=== PATIENT | male | born 1955 | race Caucasian/White ===

== ENCOUNTER → 2017-04-30 | Outpatient (CLI) | payer OTHER ==
[~2017-04-30] MED LIST: MULT-513 PO
[2017-04-30 13:00] LABS: BASO % 0.8 %; BASO ABS # 0.04 K/uL (0-0.2); COMPLETE YES; EOS % 5.7 %; HEMATOCRIT 45.5 % (42-52); IG% 0.2 %; LYMPH ABS # 1.32 K/uL (1.2-3.4); MEAN CELL VOLUME 93.2 fL (80-100); MEAN CORPUSCULAR HEMOGLOBIN 31.1 pg (25-34); MEAN CORPUSCULAR HGB CONC 33.4 g/dl (32-36); MEAN PLATELET VOLUME 10.5 fL (7.4-10.4); MONO % 9.2 %; NEUT % 57.1 %; PLATELET COUNT 170 K/uL (130-400); RED BLOOD COUNT 4.88 M/uL (4.7-6.1); WHITE BLOOD COUNT 4.88 K/uL (4.8-10.8)
[2017-04-30 13:07] LABS: ALT/SGPT 26 U/L (12-78); AST/SGOT 17 U/L (15-37); BLOOD UREA NITROGEN 20 mg/dl (7-18); BUN/CREATININE RATIO 20.2 (10-20); CALCIUM 8.7 mg/dl (8.5-10.1); CARBON DIOXIDE 25 mmol/L (21-32); CHLORIDE 107 mmol/L (98-107); CHOLESTEROL 180 mg/dl (0-200); CREATININE 0.99 mg/dl (0.60-1.40); GLUCOSE 91 mg/dl (70-99); POTASSIUM 4.1 mmol/L (3.5-5.1); SODIUM 139 mmol/L (136-145)
[2017-04-30 13:17] LABS: ALB/GLOB RATIO 1.2 (0.9-2); ALKALINE PHOSPHATASE 54 U/L (45-117); CHOLESTEROL/HDL RATIO 4.5; HDL CHOLESTEROL 40 mg/dl; TRIGLYCERIDES 124 mg/dl (0-150); VERY LOW DENSITY LIPOPROT CALC 25 mg/dl
== END | disposition home or self-care (01) ==
LOC: C.LABSPEC 12:25
PROVIDERS: ATTEND Internal Medicine
DX: R53.83 Other fatigue (principal); E78.5 Hyperlipidemia, unspecified; R30.0 Dysuria; Z11.59 Encounter for screening for other viral diseases

== ENCOUNTER 2017-05-06 05:20 | Emergency (ER) | payer OTHER ==
[~2017-05-06] VITALS: Ht 177.8 cm; Wt 95.8 kg
[2017-05-06 05:25] VITALS: Ht 177.8 cm; Wt 95.8 kg
[2017-05-06] MEDS ORDERED: MoRPHine SULFATE 4 MG/ML 1 ML CARP\\VIAL IV STA ×2 (05:44→06:08)
[2017-05-06] MEDS ORDERED: SODIUM CHLORIDE 0.9% 1000ML 1,000 ML IV STA ×2 (05:44→07:11)
[2017-05-06 06:03] LABS: BASO % 0.7 %; BASO ABS # 0.04 K/uL (0-0.2); COMPLETE YES; EOS % 6.9 %; IG% 0.2 %; LYMPH % 24.8 %; LYMPH ABS # 1.48 K/uL (1.2-3.4); MEAN CELL VOLUME 91.3 fL (80-100); MEAN CORPUSCULAR HEMOGLOBIN 32.7 pg (25-34); MEAN CORPUSCULAR HGB CONC 35.9 g/dl (32-36); MEAN PLATELET VOLUME 10.2 fL (7.4-10.4); MONO % 8.7 %; NEUT % 58.7 %; PLATELET COUNT 166 K/uL (130-400); RED BLOOD COUNT 5.04 M/uL (4.7-6.1); WHITE BLOOD COUNT 5.96 K/uL (4.8-10.8)
[2017-05-06 06:12] LABS: PROTHROMBIN TIME (PATIENT) 10.4 SECONDS (9.0-12.0)
[2017-05-06] MEDS ORDERED: HYDROmorphone INJ 1 MG/ML SYR IV STA (06:29)
[2017-05-06 06:32] LABS: BUN/CREATININE RATIO 20.4 (10-20); CALCIUM 9.3 mg/dl (8.5-10.1); CREATININE 1.27 mg/dl (0.60-1.40); POTASSIUM 4.1 mmol/L (3.5-5.1)
[2017-05-06] MEDS ORDERED: KETOROLAC TROMETHAMINE 30 MG/ML VIAL IV STA (06:33)
[2017-05-06 06:34] LABS: ALB/GLOB RATIO 1.2 (0.9-2)
--- NOTE | 2017-05-06 06:39 | EMERGENCY ROOM VISIT NOTE ---
History Report prepared by Troy: Lloyd Blanco Under the Supervision of: Arnulfo FariaO. First contact with patient: 05:34 Chief Complaint: ABDOMINAL PAIN Stated Complaint: LWR RT ABD PAIN INTO BACK - COMES AND GOES History of Present Illness The patient is a 62 year old male who presents to the Emergency Room with complaints of on and off abdominal pain for the past week, and it worsened this morning around 0130. The patient states that the pain is in his lower right abdomen, and it is going into his lower back. He states that he has never had anything like this in the past, though he states that last week he was lifting things, though nothing since then. The patient states that he has never had anything like this before, and he has never had any abdominal surgeries. He states that he currently has a hernia in the left lower abdomen, and this has not changed recently. The patient states that he does not have a family history of gall bladder or appendix issues, and he is unsure about kidney stones. Pt denies headache, change in vision, fevers, chest pain, shortness of breath, nausea, vomiting, diarrhea, pain with urination, and melena. Pt states vomited twice prior to arrival. Source of History: patient Onset: a week ago Position: abdomen (lower right) Timing: other (on and off) Associated Symptoms: + back pain Review of Systems See HPI for pertinent positives & negatives. A total of 10 systems reviewed and were otherwise negative. Past Medical & Surgical Medical Problems: (1) Hernia Social History Smoking Status: Never Smoker Marital Status: Housing Status: lives with family Occupation Status: employed Current/Historical Medications Scheduled Ondasetron Odt (Zofran Odt), 4 MG SL Q6H Tamsulosin Hcl (Flomax), 0.4 MG PO DAILY Scheduled PRN Oxycodone/Acetaminophen 5MG/325MG (Percocet 5MG/325MG), 1-2 TABLETS PO Q4H PRN for Pain Allergies Coded Allergies: No Known Allergies (Unverified , 05/06/17) Physical Exam Vital Signs Date Time Temp Pulse Resp B/P (MAP) Pulse Ox O2 Delivery O2 Flow Rate FiO2 05/06/17 08:09 36.3 72 20 112/74 94 05/06/17 07:46 72 20 112/74 94 05/06/17 06:40 56 18 100 05/06/17 06:32 145/86 05/06/17 06:25 55 23 100 05/06/17 06:24 161/87 05/06/17 06:05 52 19 100 05/06/17 06:01 151/98 05/06/17 05:50 54 24 98 Room Air 05/06/17 05:41 56 05/06/17 05:38 153/96 05/06/17 05:25 36.3 56 24 175/103 100 Room Air Physical Exam GENERAL: alert, uncomfortable appearing, well nourished, no distress, non-toxic EYE EXAM: normal conjunctiva, PERRL and EOM's grossly intact OROPHARYNX: no exudate, no erythema, lips, buccal mucosa, and tongue normal and mucous membranes are moist NECK: supple, no nuchal rigidity, no adenopathy, non-tender LUNGS: Clear to auscultation. Normal chest wall mechanics HEART: no murmurs, S1 normal and S2 normal ABDOMEN: Tenderness in the right lower abdomen from the midline to the right side. Dull to percussion. No rebound. Some guarding on the right side. Abdomen soft, normo-active bowel sounds BACK: Back is symmetrical on inspection and there is no deformity, no midline tenderness, no CVA tenderness. SKIN: no rashes and no bruising UPPER EXTREMITIES: upper extremities are grossly normal. LOWER EXTREMITIES: No pitting edema. NEURO EXAM: Normal sensorium, cranial nerves II-XII grossly intact, normal speech, no gross weakness of arms, no gross weakness of legs. Gross sensation intact. Medical Decision & Procedures ER Provider Diagnostic Interpretation: Radiology results have been interpreted by the radiologist and reviewed by me. ABD/PELVIS NO IV OR ORAL CONT HISTORY: 62 years-old Male right abd/flank pain severe right-sided flank pain with history of kidney stones COMPARISON: None available TECHNIQUE: Multiple axial CT images of the abdomen and pelvis were obtained without contrast. A dose lowering technique was used consistent with the principals of ALMARA. FINDINGS: Study is mildly limited secondary to patient motion. Mild dependent bibasilar atelectasis. No pneumoperitoneum. The imaged inferior cardiac chambers are mildly enlarged. Trace pericardial effusion. Ill-defined 2.2 x 1.8 cm low attenuating lesion is seen within segment of the liver on image 40 of series 2 with additional ill-defined 2.4 x 1.9 cm lesion seen within the left hepatic lobe. Evaluation of the solid abdominal organs is limited without the use of IV contrast. The spleen, pancreas, gallbladder and adrenal glands are unremarkable. Exophytic cystic lesion of the inferior pole left kidney is seen, 2.5 x 2.5 cm suggesting cyst. Additionally, there are probable renal sinus cysts on the left. There is moderate right-sided hydronephrosis with associated perinephric and periureteral inflammatory stranding secondary to a 4 x 4 x 5 mm calculus of the proximal right ureter which is seen at the level of L3-L4. Urinary bladder and prostate are unremarkable. Small fat filled inguinal hernias. The abdominal aorta is normal in both course and caliber. No bulky adenopathy. No bowel obstruction or focal bowel wall thickening. The large bowel is within normal limits. The appendix appears normal. Soft tissues are unremarkable. Scattered sclerotic foci of the pelvis suggests bone islands. IMPRESSION: 1. 4 x 4 x 5 mm calculus of the proximal right ureter at the level of L3-L4 causes moderate right-sided hydroureteronephrosis. 2. Ill-defined areas of low attenuation involving the right and left hepatic lobes as above measuring up to 2.4 cm are suspicious for indeterminate lesions. These findings could be correlated with contrast-enhanced study. 3. Normal appendix. The above report was generated using voice recognition software. It may contain grammatical, syntax or spelling errors. Electronically signed by: Zaire Montanez M.D. 05/06/2017 7:05 AM Dictated Date/Time: 05/06/2017 6:55 AM Laboratory Results 05/06/17 05:45 Red Blood Count 5.04, Mean Corpuscular Volume 91.3, Mean Corpuscular Hemoglobin 32.7, Mean Corpuscular Hemoglobin Concent 35.9, Mean Platelet Volume 10.2, Neutrophils (%) (Auto) 58.7, Lymphocytes (%) (Auto) 24.8, Monocytes (%) (Auto) 8.7, Eosinophils (%) (Auto) 6.9, Basophils (%) (Auto) 0.7, Neutrophils # (Auto) 3.50, Lymphocytes # (Auto) 1.48, Monocytes # (Auto) 0.52, Eosinophils # (Auto) 0.41, Basophils # (Auto) 0.04 05/06/17 05:45 Test 05/06/17 05:45 05/06/17 05:53 White Blood Count 5.96 K/uL (4.8-10.8) Red Blood Count 5.04 M/uL (4.7-6.1) Hemoglobin 16.5 g/dL (14.0-18.0) Hematocrit 46.0 % (42-52) Mean Corpuscular Volume 91.3 fL (80-100) Mean Corpuscular Hemoglobin 32.7 pg (25-34) Mean Corpuscular Hemoglobin Concent 35.9 g/dl (32-36) Platelet Count 166 K/uL (130-400) Mean Platelet Volume 10.2 fL (7.4-10.4) Neutrophils (%) (Auto) 58.7 % Lymphocytes (%) (Auto) 24.8 % Monocytes (%) (Auto) 8.7 % Eosinophils (%) (Auto) 6.9 % Basophils (%) (Auto) 0.7 % Neutrophils # (Auto) 3.50 K/uL (1.4-6.5) Lymphocytes # (Auto) 1.48 K/uL (1.2-3.4) Monocytes # (Auto) 0.52 K/uL (0.11-0.59) Eosinophils # (Auto) 0.41 K/uL (0-0.5) Basophils # (Auto) 0.04 K/uL (0-0.2) RDW Standard Deviation 43.2 fL (36.4-46.3) RDW Coefficient of Variation 13.0 % (11.5-14.5) Immature Granulocyte % (Auto) 0.2 % Immature Granulocyte # (Auto) 0.01 K/uL (0.00-0.02) Prothrombin Time 10.4 SECONDS (9.0-12.0) Prothromb Time International Ratio 1.0 (0.9-1.1) Urine Color YELLOW Urine Appearance CLEAR (CLEAR) Urine pH 5.0 (4.5-7.5) Urine Specific [place] 1.021 (1.000-1.030) Urine Protein NEG (NEG) Urine Glucose (UA) NEG (NEG) Urine Ketones NEG (NEG) Urine Occult Blood TRACE (NEG) Urine Nitrite NEG (NEG) Urine Bilirubin NEG (NEG) Urine Urobilinogen NEG (NEG) Urine Leukocyte Esterase NEG (NEG) Urine WBC (Auto) 1-5 /hpf (0-5) Urine RBC (Auto) 0-4 /hpf (0-4) Urine Hyaline Casts (Auto) 1-5 /lpf (0-5) Urine Epithelial Cells (Auto) 0-5 /lpf (0-5) Urine Bacteria (Auto) NEG (NEG) Anion Gap 10.0 mmol/L (3-11) Est Creatinine Clear Calc Drug Dose 71.8 ml/min Estimated GFR () 70.7 Estimated GFR (Non- 61.0 BUN/Creatinine Ratio 20.4 (10-20) Calcium Level 9.3 mg/dl (8.5-10.1) Total Bilirubin 0.8 mg/dl (0.2-1) Aspartate Amino Transf (AST/SGOT) 12 U/L (15-37) Alanine Aminotransferase (ALT/SGPT) 26 U/L (12-78) Alkaline Phosphatase 63 U/L (45-117) Total Protein 7.4 gm/dl (6.4-8.2) Albumin 4.0 gm/dl (3.4-5.0) Globulin 3.4 gm/dl (2.5-4.0) Albumin/Globulin Ratio 1.2 (0.9-2) Lipase 237 U/L (73-393) Bedside Lactic Acid Venous 2.67 mmol/L (0.90-1.70) Laboratory results per my review. Medications Administered Medications (Trade) Dose Ordered Sig/Kye Route Start Time Stop Time Status Last Admin Dose Admin Sodium Chloride 1,000 ml @ 999 mls/hr Q1H1M STAT IV 05/06/17 05:44 05/06/17 06:44 DC 05/06/17 06:09 999 MLS/HR Morphine Sulfate (MoRPHine SULFATE INJ) 4 mg NOW STAT IV 05/06/17 05:44 05/06/17 05:48 DC 05/06/17 06:04 4 MG Morphine Sulfate (MoRPHine SULFATE INJ) 4 mg NOW STAT IV 05/06/17 06:08 05/06/17 06:09 DC 05/06/17 06:24 4 MG Hydromorphone HCl (Dilaudid Inj) 1 mg NOW STAT IV 05/06/17 06:29 05/06/17 06:30 DC 05/06/17 06:40 1 MG Ketorolac Tromethamine (Toradol Inj) 30 mg NOW STAT IV 05/06/17 06:33 05/06/17 06:34 DC 05/06/17 06:37 30 MG Tamsulosin HCl (Flomax Cap) 0.4 mg NOW ONCE PO 05/06/17 06:45 05/06/17 06:46 DC 05/06/17 06:44 0.4 MG Sodium Chloride 1,000 ml @ 999 mls/hr Q1H1M STAT IV 05/06/17 07:11 05/06/17 08:11 DC 05/06/17 07:11 999 MLS/HR Oxycodone/ Acetaminophen (Percocet 5-325mg Tab) 1 tab NOW STAT PO 05/06/17 07:28 05/06/17 07:32 DC 05/06/17 07:46 1 TAB ECG Indication: abdominal pain Rate (beats per minute): 54 Rhythm: sinus bradycardia Findings: Q waves (Lead 3), T-wave inversion (lead 3), no acute ischemic change , other (Normal intervals and axis) ED Course 0534: The patient was evaluated in room A12. A complete history and physical exam was performed. 0544: Morphine Sulfate 4mg IV, Sodium Chloride 1000 ml @ 999 mls/hr IV 0608: Morphine Sulfate 4mg IV 0629: Dilaudid 1mg IV 0633: Toradol 30mg IV 0645: Flomax Cap 0.4mg PO 0651: I reevaluated the patient, and I updated him and told him that we are waiting for the reads on his tests. 0711: Sodium Chloride 1000 ml @ 999 mls/hr IV 0715: Upon reevaluation, the patient is feeling better. I discussed the CT and lab findings and the treatment plan with the patient. He verbalizes agreement and understanding. He was discharged home. Medical Decision Differential diagnosis: Etiologies such as appendicitis, diverticulitis, PUD, biliary pathology, UTI, pancreatitis, obstruction, mesenteric ischemia, aortic pathology, infections, inflammatory bowel disease, renal colic, as well as others were entertained. Likely waxing and waning quality to patient's symptoms of the course of the last week consistent with renal colic and his kidney stone. Size seems amenable to spontaneous passage at this time. Patient placed on pain medications and Flomax. Patient's pain well-controlled here, no vomiting, no fevers. No evidence of UTI. Renal function normal. Discussed with patient all results including abnormalities seen on CT of liver and kidney and advised close follow-up with family doctor for additional outpatient imaging. Discussed follow-up with urology regarding the stone. Discussed symptoms to watch and return for, use of medications, possible adverse side effects, hydration, straining of urine, he had verbalized understanding were agreeable with plan. Mildly elevated lactic acid likely due to pain and vomiting. Doubt occult bacteremia/sepsis, doubt mesenteric ischemia/colitis. Medication Reconcilliation Current Medication List: was personally reviewed by me Blood Pressure Screening Patient's blood pressure: Elevated blood pressure Blood pressure disposition: Elevated BP felt to be situational Impression Primary Impression: Abdominal pain Additional Impressions: Renal colic on right side Ureterolithiasis Scribe Attestation The scribe's documentation has been prepared under my direction and personally reviewed by me in its entirety. I confirm that the note above accurately reflects all work, treatment, procedures, and medical decision making performed by me. Departure Information Dispostion Home / Self-Care Prescriptions Ondasetron Odt (ZOFRAN ODT) 4 Mg Tab 4 MG SL Q6H for Nausea, #20 TAB Prov: Tiera Fishman, DO 05/06/17 Tamsulosin Hcl (FLOMAX) 0.4 Mg Cap 0.4 MG PO DAILY, #10 CAP Prov: Tiera Fishman, DO 05/06/17 Oxycodone/Acetaminophen 5MG/325MG (PERCOCET 5MG/325MG) Tab 1-2 TABLETS PO Q4H Y for Pain, #20 TAB PAIN Prov: Tiera Fishman, DO 05/06/17 Referrals Tee Elizondo M.D. (PCP) Patient Instructions My [facility] Additional Instructions Please follow up with your family doctor. Please follow-up with urology also regarding your stone. Please drink plenty of water and use the strainer when you urinate. Please take the pain medication as needed, do not take it and drive or drink alcohol. Please note that it may contribute to constipation. Please take the Flomax daily until you have passed the stone. He may use the nausea medication as needed. If you develop worsening pain, develop vomiting, are unable to urinate, noticed blood in her urine, develop fevers or chills, or you've any other new concerns, please return the emergency room. Problem Qualifiers Primary Impression: Abdominal pain Abdominal location: unspecified location Qualified Codes: R10.9 - Unspecified abdominal pain
[2017-05-06] MEDS ORDERED: TAMSULOSIN HCL 0.4 MG CAP PO ONE (06:45)
[2017-05-06 06:47] LABS: MANUAL MICROSCOPIC REQUIRED? NO; REVIEW REQ? NO; URINE APPEARANCE CLEAR (CLEAR); URINE BILIRUBIN NEG (NEG); URINE COLOR YELLOW; URINE EPITHELIAL CELL AUTO 0-5 /lpf (0-5); URINE NITRITE NEG (NEG); URINE SPECIFIC GRAVITY 1.021 (1.000-1.030); UROBILINOGEN NEG (NEG); ZZUR CULT IF INDIC CLEAN CATCH NO
--- NOTE | 2017-05-06 07:06 | DIAGNOSTIC IMAGING REPORT ---
ABD/PELVIS NO IV OR ORAL CONT HISTORY: 62 years-old Male right abd/flank pain severe right-sided flank pain with history of kidney stones COMPARISON: None available TECHNIQUE: Multiple axial CT images of the abdomen and pelvis were obtained without contrast. A dose lowering technique was used consistent with the principals of ALARA. FINDINGS: Study is mildly limited secondary to patient motion. Mild dependent bibasilar atelectasis. No pneumoperitoneum. The imaged inferior cardiac chambers are mildly enlarged. Trace pericardial effusion. Ill-defined 2.2 x 1.8 cm low attenuating lesion is seen within segment of the liver on image 40 of series 2 with additional ill-defined 2.4 x 1.9 cm lesion seen within the left hepatic lobe. Evaluation of the solid abdominal organs is limited without the use of IV contrast. The spleen, pancreas, gallbladder and adrenal glands are unremarkable. Exophytic cystic lesion of the inferior pole left kidney is seen, 2.5 x 2.5 cm suggesting cyst. Additionally, there are probable renal sinus cysts on the left. There is moderate right-sided hydronephrosis with associated perinephric and periureteral inflammatory stranding secondary to a 4 x 4 x 5 mm calculus of the proximal right ureter which is seen at the level of L3-L4. Urinary bladder and prostate are unremarkable. Small fat filled inguinal hernias. The abdominal aorta is normal in both course and caliber. No bulky adenopathy. No bowel obstruction or focal bowel wall thickening. The large bowel is within normal limits. The appendix appears normal. Soft tissues are unremarkable. Scattered sclerotic foci of the pelvis suggests bone islands. IMPRESSION: 1. 4 x 4 x 5 mm calculus of the proximal right ureter at the level of L3-L4 causes moderate right-sided hydroureteronephrosis. 2. Ill-defined areas of low attenuation involving the right and left hepatic lobes as above measuring up to 2.4 cm are suspicious for indeterminate lesions. These findings could be correlated with contrast-enhanced study. 3. Normal appendix. The above report was generated using voice recognition software. It may contain grammatical, syntax or spelling errors. Electronically signed by: Zaire Montanez M.D. 05/06/2017 7:05 AM Dictated Date/Time: 05/06/2017 6:55 AM
[2017-05-06] MEDS ORDERED: OXYCODONE/ACETAMINOPHEN 5-325 TAB PO STA (07:28)
[2017-05-06] MEDS ORDERED: ONDA4TAB10 SL (07:37)
[2017-05-06] MEDS ORDERED: TAMS0.4C38 PO (07:37)
[2017-05-06] MEDS ORDERED: OXYC-57 PO (07:37)
[2017-05-06] MEDS ORDERED: ONDANSETRON 4MG OD TAB ONE (07:57)
[2017-05-06 08:09] VITALS: BP 112/74; PULSE 72; TEMP 36.3; O2SAT 94
== END 2017-05-06 08:10 | disposition home or self-care (01) ==
LOC: C.EDB 05:21 → C.EDA 08:10
DX: N20.1 Calculus of ureter (principal); N23 Unspecified renal colic; R10.9 Unspecified abdominal pain; M54.9 Dorsalgia, unspecified

== ENCOUNTER 2017-05-24 12:26 | Emergency (ER) | payer OTHER ==
[~2017-05-24] VITALS: Ht 177.8 cm; Wt 83.9 kg
[~2017-05-24 12:26] MED LIST changes: -MULT-513 PO; +ONDA4TAB10 SL; +OXYC-57 PO
[2017-05-24 12:33] VITALS: TEMP 36.5; Ht 177.8 cm; Wt 83.9 kg
[2017-05-24] MEDS ORDERED: ONDANSETRON INJ 2 MG/ML 2 ML VIAL IV STA (12:54)
[2017-05-24] MEDS ORDERED: SODIUM CHLORIDE 0.9% 1000ML 1,000 ML IV STA (12:54)
[2017-05-24 13:01] LABS: BASO % 0.5 %; BASO ABS # 0.04 K/uL (0-0.2); COMPLETE YES; EOS % 1.4 %; HEMATOCRIT 45.4 % (42-52); IG% 0.2 %; LYMPH % 11.6 %; LYMPH ABS # 1.01 K/uL (1.2-3.4); MEAN CORPUSCULAR HEMOGLOBIN 31.7 pg (25-34); MEAN CORPUSCULAR HGB CONC 34.8 g/dl (32-36); MEAN PLATELET VOLUME 10.2 fL (7.4-10.4); MONO % 9.7 %; NEUT % 76.6 %; PLATELET COUNT 155 K/uL (130-400); RED BLOOD COUNT 4.99 M/uL (4.7-6.1); WHITE BLOOD COUNT 8.72 K/uL (4.8-10.8)
[2017-05-24] MEDS: MoRPHine SULFATE 4 MG/ML 1 ML CARP\\VIAL IV PRN ×2 (13:01→13:43)
[2017-05-24 13:15] LABS: BUN/CREATININE RATIO 14.7 (10-20); CREATININE 1.48 mg/dl (0.60-1.40); POTASSIUM 4.2 mmol/L (3.5-5.1)
--- NOTE | 2017-05-24 13:16 | EMERGENCY ROOM VISIT NOTE ---
History Report prepared by Troy: Erinn Paz Under the Supervision of: Dr. Rahul Rockwell D.O. First contact with patient: 12:45 Chief Complaint: KIDNEY STONE Stated Complaint: KIDNEY STONE History of Present Illness The patient is a 62 year old male who presents to the Emergency Room with complaints of intermittent right flank pain starting 2.5 weeks ago. The patient was seen in the ED May 06 and was found to have a 4 x 4 x 5 mm kidney stone. He received pain medications and Flomax and was discharged home. Since then he has been having pain intermittently which was not very severe. Today, the pain worsened so he decided to come to the ED. He had a fever and nausea today. He denies any hematuria or vomiting. He has not had anything to eat today. He denies any previous abdominal surgeries. Source of History: patient, spouse/significant other Onset: 2.5 weeks ago Position: other (right flank) Quality: other (kidney stone pain) Timing: intermittent Associated Symptoms: + fevers, + nausea, No vomiting Note: Pt denies hematuria. Review of Systems See HPI for pertinent positives & negatives. A total of 10 systems reviewed and were otherwise negative. Past Medical & Surgical Medical Problems: (1) Hernia Family History No pertinent family history stated. Social History Smoking Status: Never Smoker Marital Status: Housing Status: lives with family Occupation Status: employed Current/Historical Medications Scheduled Tamsulosin Hcl (Flomax), 0.4 MG PO DAILY Allergies Coded Allergies: No Known Allergies (Unverified , 05/24/17) Physical Exam Vital Signs Date Time Temp Pulse Resp B/P (MAP) Pulse Ox O2 Delivery O2 Flow Rate FiO2 05/24/17 16:16 56 18 133/75 98 Room Air 05/24/17 15:28 52 20 132/67 97 Room Air 05/24/17 14:10 54 18 154/88 96 Room Air 05/24/17 13:23 47 18 171/89 97 Room Air 05/24/17 13:04 50 05/24/17 12:33 36.5 61 18 134/86 98 Room Air Physical Exam GENERAL: Patient is awake, alert, and very uncomfortable appearing. EYES: The conjunctivae are clear. The pupils are round and reactive. EARS, NOSE, MOUTH AND THROAT: The nose is without any evidence of any deformity. Mucous membranes are moist tongue is midline NECK: The neck is nontender and supple. RESPIRATORY: Normal respiratory effort is noted there is no evidence of wheezing rhonchi or rales CARDIOVASCULAR: Regular rate and rhythm noted there no murmurs rubs or gallops normal S1 normal S2 GASTROINTESTINAL: The abdomen is mildly distended, but soft. Tenderness to the right upper and right lower quadrants. No guarding or rigidity noted. BACK: Right CVA tenderness to percussion. No midline tenderness noted. ROM appeared intact. MUSCULOSKELETAL/EXTREMITIES: There is no evidence of gross deformity full range of motion is noted in the hips and shoulders SKIN: There is no obvious evidence of any rash. There are no petechiae, pallor or cyanosis noted. NEUROLOGIC: Patient is awake alert and oriented x3 Medical Decision & Procedures ER Provider Diagnostic Interpretation: X-ray results as stated below per interpretation by me and the radiologist. Radiology results as stated below per my review and radiologist interpretation: KUB CLINICAL HISTORY: 62 years-old Male presenting with ABDOMINAL PAIN/GI. TECHNIQUE: Single supine view of the abdomen was obtained. COMPARISON: 05/06/2017. FINDINGS: Mild stool burden in the right colon. Mild gaseous distention of colon. No gross pneumoperitoneum. Allowing for the presence of gas and stool, no evidence of renal calculi. No calcifications along the courses of the ureters. Osseous structures normal. IMPRESSION: 1. No acute intra-abdominal pathology. Electronically signed by: Javier Peters M.D. 05/24/2017 1:37 PM Dictated Date/Time: 05/24/2017 1:35 PM (RENAL)RETROPERITON COMP CLINICAL HISTORY: 62 years-old Male presenting with right flank pain. TECHNIQUE: Real-time grayscale and limited color Doppler ultrasound imaging of the kidneys and bladder was performed. COMPARISON: CT from 05/06/2017. FINDINGS: Right kidney: Normal echogenicity. Right kidney measures 12.4 cm. Mild pelvocaliectasis. No convincing evidence of calculus or mass. Normal perfusion. Left kidney: Normal echogenicity. Left kidney measures 12.8 cm. Mild calyectasis versus parapelvic cysts. 2.6 cm simple cyst at the lower pole noted. Normal perfusion. Bladder: No bladder wall thickening. Bilateral ureteral jets present, weakly on the right. Evidence of a 5 mm hyperechoic focus with posterior shadowing and twinkling artifact consistent with calculus in the region of the right ureterovesical junction. Other: 3.1 x 3.2 x 1.5 cm focal hyperechogenic well-defined region in the liver, indeterminate. IMPRESSION: 1. Distal migration of the right ureteral calculus, now located in the region of the right ureterovesical junction. Mild right hydronephrosis persists. 2. Mild left calyectasis versus parapelvic cysts. 3. Indeterminate 3.1 cm hyperechogenic region in the liver. Differential considerations include geographic fat or hemangioma among other etiologies. Further evaluation with dedicated contrast enhanced liver CT or MR to be considered on a nonurgent basis. Electronically signed by: Javier Peters M.D. 05/24/2017 3:13 PM Dictated Date/Time: 05/24/2017 3:08 PM Laboratory Results 05/24/17 12:45 Red Blood Count 4.99, Mean Corpuscular Volume 91.0, Mean Corpuscular Hemoglobin 31.7, Mean Corpuscular Hemoglobin Concent 34.8, Mean Platelet Volume 10.2, Neutrophils (%) (Auto) 76.6, Lymphocytes (%) (Auto) 11.6, Monocytes (%) (Auto) 9.7, Eosinophils (%) (Auto) 1.4, Basophils (%) (Auto) 0.5, Neutrophils # (Auto) 6.68, Lymphocytes # (Auto) 1.01, Monocytes # (Auto) 0.85, Eosinophils # (Auto) 0.12, Basophils # (Auto) 0.04 05/24/17 12:45 Test 05/24/17 12:45 05/24/17 15:30 White Blood Count 8.72 K/uL (4.8-10.8) Red Blood Count 4.99 M/uL (4.7-6.1) Hemoglobin 15.8 g/dL (14.0-18.0) Hematocrit 45.4 % (42-52) Mean Corpuscular Volume 91.0 fL (80-100) Mean Corpuscular Hemoglobin 31.7 pg (25-34) Mean Corpuscular Hemoglobin Concent 34.8 g/dl (32-36) Platelet Count 155 K/uL (130-400) Mean Platelet Volume 10.2 fL (7.4-10.4) Neutrophils (%) (Auto) 76.6 % Lymphocytes (%) (Auto) 11.6 % Monocytes (%) (Auto) 9.7 % Eosinophils (%) (Auto) 1.4 % Basophils (%) (Auto) 0.5 % Neutrophils # (Auto) 6.68 K/uL (1.4-6.5) Lymphocytes # (Auto) 1.01 K/uL (1.2-3.4) Monocytes # (Auto) 0.85 K/uL (0.11-0.59) Eosinophils # (Auto) 0.12 K/uL (0-0.5) Basophils # (Auto) 0.04 K/uL (0-0.2) RDW Standard Deviation 42.2 fL (36.4-46.3) RDW Coefficient of Variation 12.9 % (11.5-14.5) Immature Granulocyte % (Auto) 0.2 % Immature Granulocyte # (Auto) 0.02 K/uL (0.00-0.02) Anion Gap 9.0 mmol/L (3-11) Est Creatinine Clear Calc Drug Dose 54.8 ml/min Estimated GFR () 58.8 Estimated GFR (Non- 50.7 BUN/Creatinine Ratio 14.7 (10-20) Calcium Level 9.0 mg/dl (8.5-10.1) Total Bilirubin 2.0 mg/dl (0.2-1) Direct Bilirubin 0.3 mg/dl (0-0.2) Aspartate Amino Transf (AST/SGOT) 20 U/L (15-37) Alanine Aminotransferase (ALT/SGPT) 24 U/L (12-78) Alkaline Phosphatase 66 U/L (45-117) Total Protein 7.4 gm/dl (6.4-8.2) Albumin 4.1 gm/dl (3.4-5.0) Lipase 106 U/L (73-393) Urine Color YELLOW Urine Appearance CLEAR (CLEAR) Urine pH 5.5 (4.5-7.5) Urine Specific [place] 1.019 (1.000-1.030) Urine Protein NEG (NEG) Urine Glucose (UA) NEG (NEG) Urine Ketones NEG (NEG) Urine Occult Blood 1+ (NEG) Urine Nitrite NEG (NEG) Urine Bilirubin NEG (NEG) Urine Urobilinogen NEG (NEG) Urine Leukocyte Esterase NEG (NEG) Urine WBC (Auto) 1-5 /hpf (0-5) Urine RBC (Auto) 5-10 /hpf (0-4) Urine Hyaline Casts (Auto) 1-5 /lpf (0-5) Urine Epithelial Cells (Auto) 0-5 /lpf (0-5) Urine Bacteria (Auto) NEG (NEG) Laboratory results per my review. Medications Administered Medications (Trade) Dose Ordered Sig/Kye Route Start Time Stop Time Status Last Admin Dose Admin Sodium Chloride 1,000 ml @ 999 mls/hr Q1H1M STAT IV 05/24/17 12:54 05/24/17 13:54 DC 05/24/17 12:56 999 MLS/HR Ondansetron HCl (Zofran Inj) 4 mg NOW STAT IV 05/24/17 12:54 05/24/17 12:55 DC 05/24/17 13:01 4 MG Morphine Sulfate (MoRPHine SULFATE INJ) 4 mg Q15M PRN IV 05/24/17 13:00 05/24/17 17:13 DC 05/24/17 13:43 4 MG ED Course 1252: The patient was evaluated in room B7. A complete history and physical examination were performed. 1254: Zofran Inj 4 mg IV, NSS 1000 ml @ 999 mls/hr IV. 1300: Morphine Sulfate 4 mg IV. 1600: Upon reevaluation, the patient is feeling better. I discussed the results and treatment plan with him. He verbalized agreement of the treatment plan. He was discharged home. Medical Decision Prior records/ancillary studies reviewed. Triage Nursing notes reviewed. Additional history obtained from the family. The patient's history was concerning for right flank pain. Differential diagnosis: Etiologies such as renal colic, appendicitis, diverticulitis, mesenteric ischemia, aortic pathology, infections, inflammatory bowel disease, PUD, biliary pathology, UTI, as well as others were entertained. The patient is a 62-year-old male who presented to the emergency department for an evaluation of flank pain. The patient was recently diagnosed with a kidney stone. The patient had a mid right ureteral calculus with significant hydronephrosis. He was taking medications for pain as well as Flomax and feeling better. His pain returned recently. His workup today reveals that the kidney stone appears to have migrated distally but is still in the distal ureter just above the ureterovesical junction. I discussed the patient's laboratory radiographic studies with him. He was feeling much better on subsequent reevaluation. He was encouraged to drink plenty clear liquids and continue all medications as prescribed. He had finished his course of Flomax I started this again. He had pain medication at home. I also encouraged him to follow-up with his urologist if symptoms do not resolve but given that the stone continues to migrated he may not be a candidate for a stent at this time. He was encouraged to return to the emergency department immediately if symptoms change worsen or need arises. Medication Reconcilliation Current Medication List: was personally reviewed by me Blood Pressure Screening Patient's blood pressure: Elevated blood pressure Blood pressure disposition: Elevated BP felt to be situational Impression Primary Impression: Kidney stone Additional Impression: Renal colic Scribe Attestation The scribe's documentation has been prepared under my direction and personally reviewed by me in its entirety. I confirm that the note above accurately reflects all work, treatment, procedures, and medical decision making performed by me. Departure Information Dispostion Home / Self-Care Prescriptions Tamsulosin Hcl (FLOMAX) 0.4 Mg Cap 0.4 MG PO DAILY, #10 CAP Prov: Rahul Rockwell, DO 05/24/17 Referrals Tee Elizondo M.D. (PCP) Lucas Godwin MD, Urology Forms HOME CARE DOCUMENTATION FORM, IMPORTANT VISIT INFORMATION Patient Instructions Kidney Stones, My [facility] Additional Instructions Drink plenty clear liquids. Follow-up with your family this week. Follow-up with the urologist as soon as possible. Return to the emergency department immediately symptoms change worsen or the need arises. Continue all medications as prescribed. Problem Qualifiers
--- NOTE | 2017-05-24 13:38 | DIAGNOSTIC IMAGING REPORT ---
KUB CLINICAL HISTORY: 62 years-old Male presenting with ABDOMINAL PAIN/GI. TECHNIQUE: Single supine view of the abdomen was obtained. COMPARISON: 05/06/2017. FINDINGS: Mild stool burden in the right colon. Mild gaseous distention of colon. No gross pneumoperitoneum. Allowing for the presence of gas and stool, no evidence of renal calculi. No calcifications along the courses of the ureters. Osseous structures normal. IMPRESSION: 1. No acute intra-abdominal pathology. Electronically signed by: Javier Peters M.D. 05/24/2017 1:37 PM Dictated Date/Time: 05/24/2017 1:35 PM
--- NOTE | 2017-05-24 15:14 | DIAGNOSTIC IMAGING REPORT ---
(RENAL)RETROPERITON COMP CLINICAL HISTORY: 62 years-old Male presenting with right flank pain. TECHNIQUE: Real-time grayscale and limited color Doppler ultrasound imaging of the kidneys and bladder was performed. COMPARISON: CT from 05/06/2017. FINDINGS: Right kidney: Normal echogenicity. Right kidney measures 12.4 cm. Mild pelvocaliectasis. No convincing evidence of calculus or mass. Normal perfusion. Left kidney: Normal echogenicity. Left kidney measures 12.8 cm. Mild calyectasis versus parapelvic cysts. 2.6 cm simple cyst at the lower pole noted. Normal perfusion. Bladder: No bladder wall thickening. Bilateral ureteral jets present, weakly on the right. Evidence of a 5 mm hyperechoic focus with posterior shadowing and twinkling artifact consistent with calculus in the region of the right ureterovesical junction. Other: 3.1 x 3.2 x 1.5 cm focal hyperechogenic well-defined region in the liver, indeterminate. IMPRESSION: 1. Distal migration of the right ureteral calculus, now located in the region of the right ureterovesical junction. Mild right hydronephrosis persists. 2. Mild left calyectasis versus parapelvic cysts. 3. Indeterminate 3.1 cm hyperechogenic region in the liver. Differential considerations include geographic fat or hemangioma among other etiologies. Further evaluation with dedicated contrast enhanced liver CT or MR to be considered on a nonurgent basis. Electronically signed by: Javier Peters M.D. 05/24/2017 3:13 PM Dictated Date/Time: 05/24/2017 3:08 PM
[2017-05-24 15:43] LABS: URINE APPEARANCE CLEAR (CLEAR); URINE BILIRUBIN NEG (NEG); URINE COLOR YELLOW; URINE EPITHELIAL CELL AUTO 0-5 /lpf (0-5); URINE NITRITE NEG (NEG); URINE PH 5.5 (4.5-7.5); URINE SPECIFIC GRAVITY 1.019 (1.000-1.030); UROBILINOGEN NEG (NEG)
[2017-05-24 15:44] LABS: MANUAL MICROSCOPIC REQUIRED? NO; REVIEW REQ? NO
[2017-05-24] MEDS ORDERED: TAMS0.4C38 PO (16:02)
[2017-05-24 16:16] VITALS: BP 133/75; PULSE 56; O2SAT 98
== END 2017-05-24 16:19 | disposition home or self-care (01) ==
LOC: C.EDB 12:26
DX: N20.1 Calculus of ureter (principal); N23 Unspecified renal colic; K46.9 Unspecified abdominal hernia without obstruction or gangrene

== ENCOUNTER → 2017-05-27 | Outpatient (CLI) | payer OTHER ==
[~2017-05-27] MED LIST changes: +IBUP-103 PO; -ONDA4TAB10 SL; -OXYC-57 PO; +TAMS0.4C38 PO
--- NOTE | 2017-05-27 14:57 | DIAGNOSTIC IMAGING REPORT ---
CHEST 2 VIEWS ROUTINE CLINICAL HISTORY: N20.1 Calculus of right [id number] COMPARISON STUDY: No previous studies for comparison. FINDINGS: The cardiac and mediastinal contours are normal. There is mild aortic tortuosity. There is no failure. There is no focal pulmonary consolidation. No pleural effusions are visualized.[ IMPRESSION: No active disease in the chest. Electronically signed by: Everton Duncan M.D. 05/27/2017 2:56 PM Dictated Date/Time: 05/27/2017 2:56 PM
== END | disposition home or self-care (01) ==
LOC: C.RAD 14:37
PROVIDERS: ATTEND Urology
DX: N20.1 Calculus of ureter (principal)

== ENCOUNTER → 2017-05-30 | Day surgery (SDC) | payer OTHER ==
[2017-05-28 08:39] VITALS: Ht 177.8 cm; Wt 95.5 kg
[~2017-05-30] VITALS: Ht 177.8 cm; Wt 95.5 kg
[~2017-05-30] MED LIST changes: +ATROPINE SULFATE 0.1 MG/ML 5ML SYR IV PRN; +CIPROFLOXACIN 400MG / D5W IV SCH; +DEXAMETHASONE SOD INJ 4 MG/ML VIAL ONE; +EpHEDrine SULFATE INJ 50 MG/ML AMP IV PRN; +FENTANYL CITRATE INJ 50 MCG/1 ML 2 ML VIAL IV PRN; +FENTANYL CITRATE INJ 50 MCG/1 ML 2 ML VIAL ONE; +LACTATED RINGER'S 1000ML 1,000 ML IV SCH; +LIDOCAINE HCL 2% 2 ML VIAL (20MG/ML) ONE; +MIDAZOLAM HCL 1 MG/ML 2ML VIAL ONE; +ONDANSETRON INJ 2 MG/ML 2 ML VIAL IV PRN; +ONDANSETRON INJ 2 MG/ML 2 ML VIAL ONE; +PROPOFOL IV EMULSION 10 MG/ML 20 ML VIAL IV ONE
--- NOTE | 2017-05-30 10:04 | DIAGNOSTIC IMAGING REPORT ---
KUB HISTORY: Follow-up study to assess right renal calculus . COMPARISON: KUB 05/24/2017, renal ultrasound 05/24/2017, CT 05/06/2017. FINDINGS: The bowel gas pattern is non-obstructive. There is no organomegaly. No renal calculi. No ureteral calculi identified. Small phleboliths of the right hemipelvis redemonstrated. No pneumoperitoneum or pneumatosis. No fracture. IMPRESSION: No renal or ureteral stones identified. Electronically signed by: Zaire Montanez M.D. 05/30/2017 10:02 AM Dictated Date/Time: 05/30/2017 10:00 AM
--- NOTE | 2017-05-30 12:05 | History & Physical Bridge Note ---
H&P Re-Evaluation Bridge Note: I have examined the patient, reviewed the History & Physical and in the interval since the performance of the History & Physical I have noted the following changes of clinical significance: No changes noted Stone not easily visible on KUB - we will plan for a fluoroscopic evaluation prior to starting surgery.
[2017-05-30 12:32] VITALS: BP 132/86; PULSE 46; TEMP 36.5; O2SAT 98
--- NOTE | 2017-05-30 12:33 | Progress Note ---
Progress Note Date of Service May 30, 2017. Progress Note Unable to identify a stone on fluoro. He has one right sided pelvic calcification - this was present on his CT from mid-Oct. - we did question whether there was a small, mobile calcification across the midline - (floating in the bladder?) - regardless, we elected to abort ESWL today and observe him (he has been pain free for 5 days)
--- NOTE | 2017-05-30 13:08 | Anesthesia Progress Nt - [facility] ---
Anesthesia Post Op Note Date & Time May 30, 2017 at 13:07 Vital Signs Pain Intensity: 0 Vital Signs Past 12 Hours Date Time Temp Pulse Resp B/P (MAP) Pulse Ox O2 Delivery O2 Flow Rate FiO2 05/30/17 12:32 36.5 46 16 132/86 (101) 98 Room Air 05/30/17 10:25 36.4 54 16 138/89 (105) 98 Room Air Notes Mental Status: alert / awake / arousable, participated in evaluation Pt Amnestic to Procedure: No Nausea / Vomiting: adequately controlled, see Notes Pain: adequately controlled, see Notes Airway Patency, RR, SpO2: stable & adequate BP & HR: stable & adequate Hydration State: stable & adequate No visible stone, procedure was not performed
== END | disposition home or self-care (01) ==
LOC: X.SURG 09:57
PROVIDERS: ATTEND Urology
DX: N20.0 Calculus of kidney (principal); N40.1 Benign prostatic hyperplasia with lower urinary tract symptoms; N13.8 Other obstructive and reflux uropathy; G57.30 Lesion of lateral popliteal nerve, unspecified lower limb; M19.90 Unspecified osteoarthritis, unspecified site

== ENCOUNTER → 2017-07-01 | Day surgery (SDC) | payer OTHER ==
[~2017-07-01] VITALS: Ht 177.8 cm; Wt 95.5 kg
[~2017-07-01] MED LIST changes: +ACET-1311 PO; +ASPI-390 PO; +BACITRACIN 50000 UNIT VIAL ONE; +BUPIVACAINE 0.5 % 5 MG/1 ML MPF 30ML VIAL ONE; +CEFAZOLIN SOD 1 GM VIAL ONE; -CIPROFLOXACIN 400MG / D5W IV SCH; +GLYCOPYRROLATE INJ 0.2 MG/ML VIAL ONE; +HYDROmorphone INJ 0.5 MG/0.5 ML SYR IV PRN; +KETOROLAC TROMETHAMINE 30 MG/ML VIAL ONE; +NEOSTIGMINE METHYLSULFATE 5 MG/5 ML SYR ONE; +OXYC-57 PO; +OXYCODONE/ACETAMINOPHEN 5-325 TAB PO PRN; +PROMETHAZINE HCL INJ 12.5 MG in SODIUM CHLORIDE 0.9% 50ML 50 ML IV PRN; +SODIUM CHLORIDE 0.9% 1000ML 1,000 ML IV SCH; -TAMS0.4C38 PO
[2017-07-01 07:02] VITALS: BP 133/83; PULSE 58; TEMP 36.8; O2SAT 96; Ht 177.8 cm; Wt 95.5 kg
--- NOTE | 2017-07-01 08:06 | History & Physical Bridge Note ---
H&P Re-Evaluation Bridge Note: I have examined the patient, reviewed the History & Physical and in the interval since the performance of the History & Physical I have noted the following changes of clinical significance: No changes noted pt marked SO at bedside, all questions answered
--- NOTE | 2017-07-01 08:16 | Discharge Instructions ---
Discharge Instructions Date of Service Jul 01, 2017. Visit Reason for Visit: Left Inguinal Hernia Discharge Discharge Diagnosis / Problem: hernia repair Discharge Goals Goal(s): Decrease discomfort Activity Recommendations Activity Limitations: as noted below Lifting Limitations: no more than 10 pounds Shower/Bathe: tomorrow Driving or Machine Use: resume 3 days after discharge Anesthesia . Post Anesthesia Instructions: If you have had General Anesthesia or IV Sedation: * Do not drive today. * Resume driving when surgeon permits. * Do not make important decisions or sign legal documents today. * Call surgeon for: 1. Temperature elevations greater than 101 degrees F. 2. Uncontrollable pain. 3. Excessive bleeding. 4. Persistent nausea and vomiting. 5. Medication intolerance (nausea, vomiting or rash). * For nausea and vomiting use only clear liquids such as: tea, soda, bouillon until nausea subsides, then gradually increase diet as tolerated. * If you have any concerns or questions, call your surgeon's office. If physician is unavailable and it is an emergency, call 911 or go to the nearest emergency room. . Instructions / Follow-Up Instructions / Follow-Up Dr. Ricci in 1 week, call [phone] for any questions or if you do not already have an appt Ice left groin off and on alternating every 20 minutes until bedtime Diet Recommendations Recommended Home Diet: no limitations Pending Studies Studies pending at discharge: no Medical Emergencies . Who to Call and When: Medical Emergencies: If at any time you feel your situation is an emergency, please call 911 immediately. . Non-Emergent Contact Non-Emergency issues call your: Surgeon Call Non-Emergent contact if: you have a fever, temperature is above 101.5, your pain is not controlled, wound has increased redness, you have any medication questions . . "Provider Documentation" section prepared by Vivek To. . [place] Drug Monitoring Program Search Results: no issues identified
--- NOTE | 2017-07-01 10:01 | [facility] Operative Report ---
Operative Report Operative Date Jul 01, 2017. Pre-Operative Diagnosis Left inguinal hernia Post-Operative Diagnosis Left inguinal hernia direct and lipoma cord Procedure(s) Performed Open Left Inguinal Hernia Repair with Maelex Mesh tension free and excision lipoma of cord Surgeon Dr. Leland Ricci Costume Design Teacher Surgeon(s) Nette Gates PA-C Estimated Blood Loss 5ml Findings long lipoma cord trapped in ext ring and direct weakness Specimens Permanent specimens A: Lipoma of cord, left inguinal hernia Description of Procedure OR summary dictated confirmation number [id number] I attest to the content of the Intraoperative Record and any orders documented therein. Any exceptions are noted below.
--- NOTE | 2017-07-01 10:27 | OPERATIVE REPORT ---
DATE OF OPERATION: 07/01/2017 SURGEON: Dr. Ricci. DEVIL DOG: Nette Gates PA-C. PREOPERATIVE DIAGNOSIS: Left inguinal hernia. POSTOPERATIVE DIAGNOSES: Left direct inguinal hernia and a lipoma of the cord. PROCEDURE: Left direct inguinal hernia repair with Marlex mesh, tension free, and excision of lipoma of the cord. SUMMARY: The patient was brought into the operating room theater, and under general anesthesia, the left lower quadrant prepped with scrubbing solution and properly draped. Preemptive local analgesia 0.5% Marcaine was used to infiltrate 2 fingerbreadths medial anterior superior iliac crest subfascially. An incision was then paralleled to the inguinal ligament, deepened through subcutaneous tissue. A few nodes of subcutaneous venous plexus were ligated with 2-0 silk and divided, went onto the external oblique after going through Chuy's fascia and dissected down to the external ring. Weitlaner was inserted. More local anesthetic was used underneath the external oblique fascia where this was opened along the course of its fibers. The nerve appeared to be way up in the operative field. We did place underneath hemostats to get it out of the way. We then elevated the cord structure. The patient was identified at the external ring, there was obviously some fat entrapped into the external ring area. Once we elevated everything up over a Marianne drain, we dissected out a very large lipoma that extended down through the external ring and it was being trapped. There was no indirect hernia. The patient had direct weakness. At this point, we then brought in a sheet of Marlex mesh and cut it appropriately, sutured it to symphysis pubis, shelving portion of the inguinal ligament, above the conjoined tendon, placing the nerve along the cord structure to avoid any entrapment. The internal ring was reconstructed only to accommodate the tip of a hemostat. More local was used at the area. The area was checked for hemostasis and appeared satisfactory. We closed the external oblique over the cord structures with 3-0 interrupted silk suture, 2-0 Dexon, jessica for skin edges. Dressing was applied. Procedure was tolerated well by the patient. Estimated blood loss approximately 5 mL. The patient was taken to recovery room in good condition. I attest to the content of the Intraoperative Record and any orders documented therein. Any exception s are noted below.
--- NOTE | 2017-07-01 10:37 | Anesthesiology Progress Note ---
Anesthesia Post Op Note Date & Time Jul 01, 2017 at 10:37 Vital Signs Pain Intensity: 0 Vital Signs Past 12 Hours Date Time Temp Pulse Resp B/P (MAP) Pulse Ox O2 Delivery O2 Flow Rate FiO2 07/01/17 10:30 36.6 51 14 117/78 95 Room Air 07/01/17 10:20 60 20 128/79 97 Room Air 07/01/17 10:10 55 14 121/76 100 Oxymask 10 07/01/17 10:00 50 17 129/75 100 Oxymask 10 07/01/17 09:54 36.4 51 13 128/83 100 Oxymask 10 07/01/17 07:02 36.8 58 18 133/83 (100) 96 Room Air Notes Mental Status: alert / awake / arousable, participated in evaluation Pt Amnestic to Procedure: Yes Nausea / Vomiting: adequately controlled Pain: adequately controlled Airway Patency, RR, SpO2: stable & adequate BP & HR: stable & adequate Hydration State: stable & adequate Anesthetic Complications: no major complications apparent
[2017-07-01 10:42] VITALS: BP 127/73; PULSE 52; TEMP 36.4; O2SAT 95
[2017-07-01 11:08] VITALS: BP 133/81; PULSE 54; TEMP 36.5; O2SAT 96
[2017-07-01 11:37] VITALS: BP 138/85; PULSE 55; TEMP 36.7; O2SAT 97
== END | disposition home or self-care (01) ==
LOC: C.ACU 06:40
PROVIDERS: ATTEND Surgery
DX: K40.90 Unilateral inguinal hernia, without obstruction or gangrene, not specified as recurrent (principal); D17.6 Benign lipomatous neoplasm of spermatic cord; N40.1 Benign prostatic hyperplasia with lower urinary tract symptoms; N13.8 Other obstructive and reflux uropathy; M19.90 Unspecified osteoarthritis, unspecified site; G47.30 Sleep apnea, unspecified; K76.9 Liver disease, unspecified; N28.9 Disorder of kidney and ureter, unspecified

== ENCOUNTER → 2017-08-20 | Outpatient (CLI) | payer OTHER ==
[~2017-08-20] MED LIST changes: -ACET-1311 PO; -ASPI-390 PO; -ATROPINE SULFATE 0.1 MG/ML 5ML SYR IV PRN; -BACITRACIN 50000 UNIT VIAL ONE; -BUPIVACAINE 0.5 % 5 MG/1 ML MPF 30ML VIAL ONE; -CEFAZOLIN SOD 1 GM VIAL ONE; -DEXAMETHASONE SOD INJ 4 MG/ML VIAL ONE; -EpHEDrine SULFATE INJ 50 MG/ML AMP IV PRN; -FENTANYL CITRATE INJ 50 MCG/1 ML 2 ML VIAL IV PRN; -FENTANYL CITRATE INJ 50 MCG/1 ML 2 ML VIAL ONE; -GLYCOPYRROLATE INJ 0.2 MG/ML VIAL ONE; -HYDROmorphone INJ 0.5 MG/0.5 ML SYR IV PRN; -KETOROLAC TROMETHAMINE 30 MG/ML VIAL ONE; -LACTATED RINGER'S 1000ML 1,000 ML IV SCH; -LIDOCAINE HCL 2% 2 ML VIAL (20MG/ML) ONE; -MIDAZOLAM HCL 1 MG/ML 2ML VIAL ONE; -NEOSTIGMINE METHYLSULFATE 5 MG/5 ML SYR ONE; -ONDANSETRON INJ 2 MG/ML 2 ML VIAL IV PRN; -ONDANSETRON INJ 2 MG/ML 2 ML VIAL ONE; +OPTIRAY 320 IV PRN; -OXYCODONE/ACETAMINOPHEN 5-325 TAB PO PRN; -PROMETHAZINE HCL INJ 12.5 MG in SODIUM CHLORIDE 0.9% 50ML 50 ML IV PRN; -PROPOFOL IV EMULSION 10 MG/ML 20 ML VIAL IV ONE; -SODIUM CHLORIDE 0.9% 1000ML 1,000 ML IV SCH
--- NOTE | 2017-08-20 07:21 | DIAGNOSTIC IMAGING REPORT ---
CT LIVER (ABDOMEN) COMBO CT DOSE: 1941.18 mGy.cm CLINICAL HISTORY: LIVER MASS TECHNIQUE: Unenhanced images were obtained through the liver. The patient was then scanned in a dynamic helical fashion during intravenous administration of 94 cc of Optiray 320. 30 seconds 82nd 5 minute delayed images were acquired. A dose lowering technique was utilized adhering to the principles of ALARA. COMPARISON STUDY: May 06, 2017 FINDINGS: The heart is mildly enlarged. There are mild dependent atelectatic changes. No splenic masses are visualized. No pancreatic masses are visualized. No gallbladder abnormalities are visualized. No adrenal masses are visualized. There is 27 mm left renal cyst. Left renal parapelvic cysts are also present. There is 8 mm right renal cyst. No solid renal masses are visualized. Visualized portions the appendix appear normal. There is a tiny fat-containing umbilical hernia. There is no evidence of upper abdominal lymphadenopathy. There is no evidence of abdominal aortic dilatation. There is a 36 mm hypodense lesion within the right lobe of the liver inferiorly. There is a 16 mm hypodense lesion within the right lobe of the liver centrally. There is a 14 mm hypodense lesion within the lateral segment of the left lobe. These 3 lesions demonstrate indeterminate enhancement characteristics. The 2 smaller lesions become relatively isodense with liver on delayed images. The larger right lobe lesion remains hypodense. It is conceivable that these lesions represent different pathologic processes. IMPRESSION: There are 3 hepatic lesions with indeterminate enhancement characteristics. The 2 smaller lesions become relatively isodense with liver on delayed imaging while the larger lesion remains hypodense. It is therefore conceivable that these lesions represent different pathologic processes. Electronically signed by: Everton Duncan M.D. 08/20/2017 7:20 AM Dictated Date/Time: 08/20/2017 7:06 AM
== END | disposition home or self-care (01) ==
LOC: C.CTS 06:31
PROVIDERS: ATTEND Internal Medicine
DX: R16.0 Hepatomegaly, not elsewhere classified (principal)

== ENCOUNTER → 2017-08-28 | Outpatient (CLI) | payer OTHER ==
[~2017-08-28] MED LIST changes: -OPTIRAY 320 IV PRN
[2017-08-28 12:56] LABS: TOTAL PROTEIN 7.2 gm/dl (6.4-8.2)
== END | disposition home or self-care (01) ==
LOC: C.LAB 10:09
PROVIDERS: ATTEND Internal Medicine
DX: R16.0 Hepatomegaly, not elsewhere classified (principal)

== ENCOUNTER → 2017-11-14 | Outpatient (CLI) | payer OTHER ==
--- NOTE | 2017-11-14 07:56 | DIAGNOSTIC IMAGING REPORT ---
(RENAL)RETROPERITON COMP HISTORY: Nephrocalcinosis KIDNEY STONES COMPARISON: 05/24/2017 FINDINGS: Right kidney: Maximum dimension 11.3 cm. No evidence for hydronephrosis. Mild cortical thinning. Left kidney: Maximum dimension 11.8 cm. No evidence for hydronephrosis. 2.4 cm lower pole cyst. Mild cortical thinning. Bladder: No bladder wall thickening. The bilateral ureteral jets were identified. IMPRESSION: Small left renal cyst. Mild bilateral cortical thinning. No evidence for hydronephrosis. Improved study from 05/24/2017 The above report was generated using voice recognition software. It may contain grammatical, syntax or spelling errors. Electronically signed by: Edmund Smith M.D. 11/14/2017 7:55 AM Dictated Date/Time: 11/14/2017 7:53 AM
== END | disposition home or self-care (01) ==
LOC: C.ULTR 06:51
PROVIDERS: ATTEND Internal Medicine
DX: N20.0 Calculus of kidney (principal); N28.1 Cyst of kidney, acquired